=== PATIENT | male | born 1960 | race Caucasian/White ===

== ENCOUNTER 2016-07-19 09:34 | Emergency (ER) | payer OTHER ==
[2016-07-19 11:30] VITALS: BP 147/99
--- NOTE | 2016-07-19 11:51 | UC ---
Respiratory Complaint HPI - HPI Summary HPI Summary: cough, nasal congestion, post nasal drip x 1 week. Started Cipro 500 bid on 07/16 from his PCP, Dr. Casiano, at the [facility]. States minimal improvement. Fever a few days ago, wheezing at night, improved with an inhaler (albuterol). Nonsmoker. - History of Current Complaint Chief Complaint: UCRespiratory Stated Complaint: COUGH Time Seen by Provider: 07/19/16 11:49 Hx Obtained From: Patient Onset/Duration: Gradual Onset, Lasting Weeks - 1, Still Present Timing: Constant Severity Initially: Moderate Severity Currently: Moderate Pain Intensity: 6 Pain Scale Used: 0-10 Numeric Character: Cough: Productive Aggravating Factors: Nothing Alleviating Factors: Bronchodilator - albuterol, somewhat Associated Signs And Symptoms: Positive: Fever, Wheezing, URI, Nasal Congestion , Sinus Discomfort. Negative: Calf Pain, Calf Swelling Related History: Similar Episode/Dx as: - bronchitis - Risk Factors Pulmonary Embolism Risk Factors: Negative Cardiac Risk Factors: Negative Pseudomonas Risk Factors: Negative Tuberculosis Risk Factors: Negative - Allergies/Home Medications Allergies/Adverse Reactions: Allergies Allergy/AdvReac Type Severity Reaction Status Date / Time No Known Allergies Allergy Verified 07/19/16 11:19 PMH/Surg Hx/FS Hx/Imm Hx Endocrine History Of: Reports: Diabetes - Type 2 Respiratory History Of: Reports: Bronchitis - Surgical History Surgical History: Yes Surgery Procedure, Year, and Place: GALLBALDDER REMOVED - Family History Known Family History: Positive: Hypertension, Diabetes - Social History Lives: With Family Alcohol Use: None Substance Use Type: None Smoking Status (MU): Never Smoked Tobacco - Immunization History Most Recent Influenza Vaccination: 02/2016 Review of Systems Constitutional: Negative Skin: Negative Eyes: Negative ENT: Sore Throat, Nasal Discharge, Other - sinus discomfort Respiratory: Cough Cardiovascular: Negative Gastrointestinal: Negative Genitourinary: Negative Motor: Negative Neurovascular: Negative Musculoskeletal: Negative Neurological: Negative Psychological: Negative All Other Systems Reviewed And Are Negative: Yes Physical Exam Triage Information Reviewed: Yes Appearance: Well-Nourished, Ill-Appearing, Pain Distress Vital Signs: Initial Vital Signs Temp 98.1 F 07/19/16 11:22 Pulse 90 07/19/16 11:22 Resp 20 07/19/16 11:22 BP 147/99 07/19/16 11:22 Pulse Ox 96 07/19/16 11:22 Vital Signs Reviewed: Yes Eyes: Positive: Conjunctiva Clear ENT: Positive: Pharynx normal, TMs normal, Other: - sinus tenderness Neck: Positive: Supple, Nontender, No Lymphadenopathy Respiratory: Positive: Lungs clear, Normal breath sounds, No respiratory distress Cardiovascular: Positive: RRR, No Murmur, Pulses Normal, Brisk Capillary Refill Musculoskeletal: Positive: Strength Intact, ROM Intact Neurological: Positive: Alert, Muscle Tone Normal Psychological Exam: Normal Skin Exam: Normal UC Diagnostic Evaluation - Laboratory O2 Sat by Pulse Oximetry: 96 Respiratory Course/Dx - Course Course Of Treatment: cxr neg - Differential Dx/Diagnosis Differential Diagnosis/HQI/PQRI: Bronchitis, Influenza, Lower Resp Infection, Sinusitis Provider Diagnoses: acute bronchitis. acute sinusitis Discharge - Discharge Plan Condition: Stable Disposition: HOME Prescriptions: Albuterol HFA INHALER* [Ventolin HFA Inhaler*] 2 puff INH Q4H PRN #1 mdi PRN Reason: Cough Fluticasone NASAL SPRAY 50MCG* [Flonase NASAL SPRAY 50MCG*] 2 spray BOTH NARES DAILY #1 btl guaiFENesin/CODIEN 100MG-10MG* [Robitussin AC 100Mg-10Mg*] 5 ml PO Q4H PRN #100 ml MDD 30ml PRN Reason: Cough Referrals: Ruddy Casiano MD [Primary Care Provider] -
--- NOTE | 2016-07-19 12:27 | RAD ---
INDICATION: Cough and wheezing. COMPARISON: Comparison is made with a prior chest x-ray study from September 26, 2003. TECHNIQUE: Dual-energy PA and lateral views of the chest were obtained. FINDINGS: The heart is within normal limits in size. Mediastinal and hilar contours appear within normal limits. The lungs are clear. No pleural effusion is present. IMPRESSION: NO EVIDENCE FOR ACTIVE CARDIOPULMONARY DISEASE.
== END 2016-07-19 12:46 | disposition home or self-care (01) ==
LOC: UCCORT 09:34
DX: J20.9 Acute bronchitis, unspecified (principal); J32.8 Other chronic sinusitis; E11.9 Type 2 diabetes mellitus without complications; Z79.4 Long term (current) use of insulin
CPT/HCPCS: 71020; 99212; G0463

== ENCOUNTER 2017-10-07 11:18 | Emergency (ER) | payer OTHER ==
[2017-10-07 12:12] VITALS: BP 142/88
--- NOTE | 2017-10-07 12:33 | UC ---
General HPI - HPI Summary HPI Summary: began 4 days ago with head congestion, now sore throat, ear pressure, cough and chest congestion. "I think I have bronchitis". no fever, sob, lung disease. admits to wheezing. has albuterol mdi but hasn't used it. BP elevated here. pt denies hx htn and walks daily. has f/u pcp next week and will have it rechecked then. - History of Current Complaint Chief Complaint: UCRespiratory Stated Complaint: COUGH/SINUS COMP Time Seen by Provider: 10/07/17 12:10 Hx Obtained From: Patient Onset/Duration: Gradual Onset, Lasting Days - 4 Timing: Constant Pain Intensity: 6 Aggravating: nothing Alleviating: nothing Associated Signs & Symptoms: Positive: Cough, Wheezing. Negative: Chest Pain, Fever, SOB - Allergy/Home Medications Allergies/Adverse Reactions: Allergies Allergy/AdvReac Type Severity Reaction Status Date / Time No Known Allergies Allergy Verified 10/07/17 12:08 Home Medications: Home Medications metFORMIN* [Glucophage 500 MG TAB *] 1 tab BID 10/07/17 [History Confirmed 10/07] PMH/Surg Hx/FS Hx/Imm Hx - Additional Past Medical History Additional PMH: pancreatitis Endocrine History: Diabetes - NIDDM-BS good control - Surgical History Surgical History: Yes Surgery Procedure, Year, and Place: GALLBALDDER REMOVED - Family History Known Family History: Positive: Hypertension, Diabetes Family History: mainly healthy - Social History Occupation: Retired Lives: With Family Alcohol Use: None Substance Use Type: None Smoking Status (MU): Never Smoked Tobacco - Immunization History Most Recent Influenza Vaccination: 02/2016 Vaccination Up to Date: Yes Review of Systems Constitutional: Negative Skin: Negative Eyes: Negative ENT: Sore Throat, Sinus Congestion, Sinus Pain/Tenderness Respiratory: Cough Cardiovascular: Negative Gastrointestinal: Negative Genitourinary: Negative Motor: Negative Neurovascular: Negative Musculoskeletal: Negative Neurological: Negative Psychological: Negative Is Patient Immunocompromised?: No All Other Systems Reviewed And Are Negative: Yes Physical Exam Triage Information Reviewed: Yes Appearance: Well-Appearing Vital Signs: Initial Vital Signs Temp 97 F 10/07/17 12:07 Pulse 96 10/07/17 12:07 Resp 16 10/07/17 12:07 BP 142/88 10/07/17 12:07 Pulse Ox 97 10/07/17 12:07 Vital Signs Reviewed: Yes Eyes: Positive: Conjunctiva Clear ENT: Positive: Pharynx normal, Nasal congestion, TMs normal, Uvula midline. Negative: Nasal drainage, Sinus tenderness Neck: Positive: Supple, Nontender, No Lymphadenopathy Respiratory: Positive: Lungs clear, Normal breath sounds Cardiovascular: Positive: RRR, No Murmur Abdomen Description: Positive: Nontender, No Organomegaly, Soft Bowel Sounds: Positive: Present Musculoskeletal: Positive: ROM Intact Neurological: Positive: Alert Psychological: Positive: Age Appropriate Behavior Skin Exam: Normal Diagnostics - Laboratory Diagnostic Studies Completed/Ordered: rapid strep=neg, nothing on hx or exam to suggest bacterial infection. NIDDM with stable BS's. will tx hx whhezing with pt 's albuterol MDI and cough not relieved by albuterol with Tessalon Perlmedardo. Pt has f/u pcp next week and willl have BP rechecked at that time. Course/Dx - Differential Dx - Multi-Symptom Provider Diagnoses: URI. Bronchitis Discharge - Sign-Out/Discharge Documenting (check all that apply): Discharge/Admit/Transfer - Discharge Plan Condition: Stable Disposition: HOME Prescriptions: Benzonatate CAP* [Tessalon 100 MG CAP*] 100 mg PO TID PRN #10 cap PRN Reason: Cough Patient Education Materials: Acute Bronchitis (ED), Upper Respiratory Infection (ED) Referrals: Ruddy New MD [Primary Care Provider] - Additional Instructions: FOLLOW UP DR NEW NEXT WEEK SCHEDULE USE YOUR ALBUTEROL INHALER 2 PUFFS EVERY 6 HOURS. - Billing Disposition and Condition Condition: STABLE Disposition: HOME
== END 2017-10-07 13:05 | disposition home or self-care (01) ==
LOC: UCCORT 11:18
DX: J06.9 Acute upper respiratory infection, unspecified (principal); J40 Bronchitis, not specified as acute or chronic; E11.9 Type 2 diabetes mellitus without complications; Z79.84 Long term (current) use of oral hypoglycemic drugs
CPT/HCPCS: 87651; 99212; G0463